=== PATIENT | female | born 1960 | race Caucasian/White ===

== ENCOUNTER → 2017-05-01 | Outpatient (CLI) | payer BC ==
[~2017-05-01] MED LIST: ACET-1966 PO; AMLO-1 PO; AMLO-101 PO; AMLO-96 PO; AMLO-99 PO; AMOX-362 PO; AMOX-559 PO; ATE50 PO; ATEN1TAB39 PO; ATOR20TA65 PO; AUG875 PO; BENZ100C4 PO; BLOO-1764 MC; CALC600T63 PO; CALC600T72 PO; CARV25TA77 PO; CITA-139 PO; CITA-141 PO; CLON-327 PO; CLON-329 PO; CLON1 PO; CYC10 PO; DILT360C49 PO; DILT60CA5 PO; ESC10 PO; ESCI20TA38 PO; EZET1TAB64 PO; FENO48TA15 PO; FLU IM; FLU45SYR25 IM ONLY; FLU60SYR30 IM ONLY; FLUT16SP19 NS; GOLYTE PO; HYDR-2975 PO; HYDR-385 PO; HYDR115S2 PO; HYDR25TA66 PO; HYDR50TA35 PO; KET10 PO; LEFL20TA6 PO; LIS20 PO; LOR5 PO; LOR5/325 PO; METF-1 PO; METF-420 PO; METH2.5T43 IM; METH25VI IJ; METHOTREXATE; METXR500 PO; MON4 PO; MOX400 PO; MULT-1124 PO; MULT1CAP59 PO; OMEG-11 PO; OMEG-24 PO; PNEU0.5D3 IM; POTA-23 PO; POTA-53 PO; POTA99TA13 PO; POTASSIUM PO; PRE1 PO; PRE5 PO; PRED20TA6 PO; SCOT TD; SIMV-44 PO; SIMV-49 PO; SIMV-54 PO; SPIR25TA78 PO; TRA50 PO; VALS-25 PO; VALS160T20 PO; VALS1TAB10 PO; VALS1TAB80 PO; VITE400 PO; [UNRECOGNIZED DRUG - REMARK]
--- NOTE | 2017-05-01 17:34 | RADIOLOGY IMAGING REPORT ---
FACILITY: [facility] [place] PATIENT NAME: Rachel Romaon : 1960 MR: [id number] V: [id number] EXAM DATE: ORDERING PHYSICIAN: YANELY NEAL TECHNOLOGIST: Location: [facility] Patient: Rachel Romano : 1960 Visit/Account:[id number] Date of Sevice: 05/01/2017 HAND 3 OR MORE VIEW BILATERAL HISTORY: Seropositive rheumatoid arthritis COMPARISON: None. FINDINGS: Three views left hand are submitted. Distal radius and ulna are intact. Radiocarpal and intercarpal alignment is within normal limits. There is juxta-articular osteopenia. Mild, concentric narrowing is seen at the first, second and thi rd MCP joints as well as the interphalangeal joints without evidence of erosive articular change. Three views right hand are submitted. Distal radius and ulna are intact. Chondrocalcinosis is noted in the region of the trianglar fibrocartilage complex. Intercarpal alignment is appropriate. There is juxta-articular osteopenia. Mild, concentric narrowing is seen in the MCP joints and interphalan geal joints throughout without erosive articular change. IMPRESSION: 1. Juxta articular osteopenia without evidence of erosive arthritis. 2. 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 3. Chondrocalcinosis in the region the right TFCC Report Dictated By: Neil Pérez MD at 05/01/2017 5:25 PM Report E-Signed By: Neil Pérez MD at 05/01/2017 5:30 PM WSN:[id number]
== END ==
LOC: RAD 12:09
PROVIDERS: ATTEND Internal Medicine Rheumatology
DX: M85.80 Other specified disorders of bone density and structure, unspecified site (principal); M19.042 Primary osteoarthritis, left hand; M19.041 Primary osteoarthritis, right hand; M11.231 Other chondrocalcinosis, right wrist

== ENCOUNTER → 2017-07-30 | Outpatient (CLI) | payer BC ==
[2017-07-30 11:42] LABS: PLATELET COUNT, AUTOMATED 264 K/uL (150-450)
== END ==
LOC: LAB 10:58
PROVIDERS: ATTEND Internal Medicine Rheumatology
DX: M05.89 Other rheumatoid arthritis with rheumatoid factor of multiple sites (principal); Z79.899 Other long term (current) drug therapy
CPT/HCPCS: 36415; 82040; 82247; 82310; 82374; 82435; 82565; 82947; 84075; 84132; 84155; 84295; 84450; 84460; 84520; 85025

== ENCOUNTER → 2017-09-11 | Outpatient (CLI) | payer BC ==
[~2017-09-11] MED LIST changes: -CITA-139 PO; +CITA-145 PO; -METF-420 PO; +METF-421 PO
== END ==
LOC: LAB 09:33
PROVIDERS: ATTEND Nurse Practitioner Family
DX: E11.9 Type 2 diabetes mellitus without complications (principal); E78.5 Hyperlipidemia, unspecified
CPT/HCPCS: 36415; 82465; 83036; 83718; 84478

== ENCOUNTER → 2017-11-05 | Outpatient (CLI) | payer BC ==
[~2017-11-05] MED LIST changes: -SPIR25TA78 PO; +SPIR25TA80 PO
[2017-11-05 10:30] LABS: PLATELET COUNT, AUTOMATED 274 K/uL (150-450)
== END ==
LOC: LAB 10:15
PROVIDERS: ATTEND Internal Medicine Rheumatology
DX: M05.89 Other rheumatoid arthritis with rheumatoid factor of multiple sites (principal)
CPT/HCPCS: 36415; 82040; 82247; 82310; 82374; 82435; 82565; 82947; 84075; 84132; 84155; 84295; 84450; 84460; 84520; 85025

== ENCOUNTER → 2017-12-12 | Outpatient (CLI) | payer BC ==
--- NOTE | 2017-12-13 11:47 | RADIOLOGY IMAGING REPORT ---
FACILITY: PATIENT NAME: YAAKOV BOLDEN : [id number] MR: [id number] V: [id number] EXAM DATE: [id number] ORDERING PHYSICIAN: FLAVIO MONDRAGON TECHNOLOGIST: Camelia Up PROCEDURE:BILATERAL DIGITAL SCREENING MAMMOGRAM WITH CAD ASSISTED INTERPRETATION & 3D TOMOSYNTHESIS COMPARISON:Prior mammograms 09/13/16, 06/10/15, 02/19/14. INDICATIONS:SCREENINIG FINDINGS: There is scattered fibroglandular tissue. No suspicious mass, microcalcification or architectural distortion. No change compared to priors. DIAGNOSTIC CATEGORY 1--NEGATIVE. RECOMMENDATIONS: ROUTINE MAMMOGRAM AND CLINICAL EVALUATION. IMPRESSION: BIRADS 1: Negative. Normal exam. Dictated by: Kd Jones on 12/13/2017 at 9:55 Transcribed by: GIN on 12/13/2017 at 10:03 Approved by: Kd Jones on 12/13/2017 at 11:46 [facility]
== END ==
LOC: MAMO 01:58
PROVIDERS: ATTEND Nurse Practitioner Family
DX: Z12.31 Encounter for screening mammogram for malignant neoplasm of breast (principal)
CPT/HCPCS: 77063; 77067

== ENCOUNTER → 2017-12-18 | Outpatient (CLI) | payer BC ==
[2017-12-18 13:41] LABS: PLATELET COUNT, AUTOMATED 270 K/uL (150-450)
== END ==
LOC: LAB 13:26
PROVIDERS: ATTEND Internal Medicine Nephrology
DX: N18.2 Chronic kidney disease, stage 2 (mild) (principal); I10 Essential (primary) hypertension; E11.9 Type 2 diabetes mellitus without complications; D63.8 Anemia in other chronic diseases classified elsewhere
CPT/HCPCS: 36415; 82040; 82043; 82247; 82310; 82374; 82435; 82565; 82947; 84075; 84132; 84155; 84295; 84450; 84460; 84520; 85025

== ENCOUNTER → 2018-03-14 | Outpatient (CLI) | payer BC ==
[~2018-03-14] MED LIST changes: +AMLO-111 PO; +AMLO-113 PO; -AMLO-96 PO; -AMLO-99 PO; -METF-421 PO; +METF-452 PO
[2018-03-14 10:42] LABS: PLATELET COUNT, AUTOMATED 276 K/uL (150-450)
== END ==
LOC: LAB 10:07
PROVIDERS: ATTEND Internal Medicine Rheumatology
DX: M05.89 Other rheumatoid arthritis with rheumatoid factor of multiple sites (principal); Z79.899 Other long term (current) drug therapy
CPT/HCPCS: 36415; 82040; 82247; 82310; 82374; 82435; 82565; 82947; 84075; 84132; 84155; 84295; 84450; 84460; 84520; 85025

== ENCOUNTER → 2018-07-17 | Outpatient (CLI) | payer BC ==
[~2018-07-17] MED LIST changes: -AMLO-111 PO; -AMLO-113 PO; +AMLO-125 PO; +AMLO-127 PO; +DIAZ-308 PO; +PNEI IJ
[2018-07-17 09:49] LABS: PLATELET COUNT, AUTOMATED 276 K/uL (150-450)
== END ==
LOC: LAB 08:56
PROVIDERS: ATTEND Nurse Practitioner Family
DX: E78.5 Hyperlipidemia, unspecified (principal); E11.9 Type 2 diabetes mellitus without complications; N18.3 Chronic kidney disease, stage 3 (moderate); I12.9 Hypertensive chronic kidney disease with stage 1 through stage 4 chronic kidney disease, or unspecified chronic kidney disease
CPT/HCPCS: 36415; 82040; 82247; 82310; 82374; 82435; 82465; 82565; 82947; 83036; 83718; 84075; 84132; 84155; 84295; 84443; 84450; 84460; 84478; 84520; 85025

== ENCOUNTER → 2018-07-17 | Outpatient (CLI) | payer BC | LOC: LAB 08:58 | PROVIDERS: ATTEND Internal Medicine Rheumatology | DX: M05.89 Other rheumatoid arthritis with rheumatoid factor of multiple sites (principal); Z79.899 Other long term (current) drug therapy ==

== ENCOUNTER → 2018-10-13 | Outpatient (CLI) | payer BC ==
[2018-10-13 12:21] LABS: PLATELET COUNT, AUTOMATED 247 K/uL (150-450)
== END ==
LOC: LAB 10:53
PROVIDERS: ATTEND Internal Medicine Rheumatology
DX: M05.89 Other rheumatoid arthritis with rheumatoid factor of multiple sites (principal); Z79.899 Other long term (current) drug therapy
CPT/HCPCS: 36415; 82040; 82247; 82310; 82374; 82435; 82565; 82947; 84075; 84132; 84155; 84295; 84450; 84460; 84520; 85025